=== PATIENT | female | born 1940 | race Two or more races ===

== ENCOUNTER 2016-09-29 14:10 | Outpatient (CLI) | payer MEDICARE | END 2016-09-29 23:59 | disposition home or self-care (01) | LOC: WOU 14:10 | PROVIDERS: ATTEND Surgery | DX: L08.89 Other specified local infections of the skin and subcutaneous tissue (principal); B35.1 Tinea unguium; E78.5 Hyperlipidemia, unspecified; I10 Essential (primary) hypertension; M13.842 Other specified arthritis, left hand; M13.841 Other specified arthritis, right hand | CPT/HCPCS: G0463 ==

== ENCOUNTER 2016-10-09 12:11 | Outpatient (CLI) | payer MEDICARE, OTHER | END 2016-10-09 23:59 | disposition home or self-care (01) | LOC: WOU 12:11 | PROVIDERS: ATTEND Surgery | DX: B35.1 Tinea unguium (principal); M19.042 Primary osteoarthritis, left hand; M19.041 Primary osteoarthritis, right hand; I10 Essential (primary) hypertension; E78.5 Hyperlipidemia, unspecified | CPT/HCPCS: G0463 ==

== ENCOUNTER 2016-10-30 13:30 | Outpatient (CLI) | payer MEDICARE | END 2016-10-30 23:59 | disposition home or self-care (01) | LOC: WOU 13:30 | PROVIDERS: ATTEND Surgery | DX: B35.1 Tinea unguium (principal); M19.042 Primary osteoarthritis, left hand; M19.041 Primary osteoarthritis, right hand; I10 Essential (primary) hypertension; E78.5 Hyperlipidemia, unspecified; Z79.899 Other long term (current) drug therapy | CPT/HCPCS: G0463 ==